=== PATIENT | female | born 1950 | race Caucasian/White ===

== ENCOUNTER 2020-08-31 08:36 | Inpatient (IN) | payer MEDICARE, OTHER ==
[2020-08-31] VITALS (41 sets, daily range): BP systolic 78–183; BP diastolic 31–141
[~2020-08-31] VITALS: Ht 167.6 cm; Wt 107.0 kg
--- NOTE | ~2020-08-31 | CON ---
[address] [address] CONSULTATION Name: CARA DUARTE Room: [address] IN ..#: [id number] Admission: 08/31/20 Attend Phys: Vaibhav Reaves MD Discharge: Date of : 50 Report #: [id number] THIS REPORT FOR: cc: MANINDER - Family physician unknown FAM - Family physician unknown ~ Steve Durand MD DATE OF SERVICE: 09/01/2020 REQUESTING PHYSICIAN: Vaibhav Reaves MD REASON FOR CONSULTATION: Acute kidney injury. HISTORY OF PRESENT ILLNESS: The patient is a 70-year-old female admitted to the hospital with chief complaints of shortness of breath. She was admitted yesterday on 08/31/2020. She was diagnosed with COVID infection five days ago, not getting any better. She now in Intensive Care Unit and had to be intubated. The patient apparently refused convalescent plasma and remdesivir as per notes from Dr. Reaves. The patient has been now thinks that she was not in right state of her mind and she wants to talk to Dr. Reaves possibly reverse that decision. PAST MEDICAL HISTORY: Significant for obesity and GERD. SOCIAL HISTORY: No current tobacco or alcohol abuse. FAMILY HISTORY: Noncontributory. REVIEW OF SYSTEMS: She was short of breath prior to admission, now she is intubated and sedated. PHYSICAL EXAMINATION: GENERAL: In ICU, intubated and sedated. VITAL SIGNS: Blood pressure is 120/51 and heart rate 63. She is afebrile. HEENT: Pupils are round. She is intubated and sedated. NECK: Fatty. LUNGS: With some crackles at the bases bilaterally. CARDIOVASCULAR: Regular rate. ABDOMEN: Obese, soft. LOWER EXTREMITIES: No edema. LABORATORY DATA: Revealed serum sodium of 131, potassium 4.3, chloride 101, carbon dioxide 22, BUN 29 and creatinine 1.9. ASSESSMENT: [place] [address] CONSULTATION Name: CARA DUARTE Room: [address] IN [facility].#: [id number] Admission: 08/31/20 Attend Phys: Vaibhav Reaves MD Discharge: Date of : 50 Report #: [id number] 1. Acute kidney injury likely due to COVID infection. 2. COVID-19 infection. 3. Respiratory failure due to COVID-19 infection. 4. Obesity. PLAN: IV fluids were stopped, I agree with that as she was fluid overloaded. Lasix was given. She had some urine output this morning. She will be started on tube feeding. Follow labs closely. She might require dialysis. By: [id number] Tony Durand MD /nt
[2020-08-31 09:22] LABS: ABSOLUTE LYMPHOCYTES 0.6 thou/uL (0.8-5.3); ABSOLUTE MONOCYTES 0.5 thou/uL (0.0-1.2); ABSOLUTE NEUTROPHILS 6.2 thou/uL (1.6-8.1); BASOPHILS 0.3 %; HEMATOCRIT 39.6 % (37.0-47.0); LYMPHOCYTES 7.6 %; MCHC 32.8 g/dL (28.0-37.0); MCV 94.5 fL (80.0-100.0); MONOCYTES 7.3 %; MPV 7.8 fl. (7.2-11.1); NUCLEATED RBCS 0 /100WBC; PLATELET COUNT* 232 thou/uL (150-400); POLYS 84.8 %; RDW-CV 14.3 % (10.5-14.5); WBC 7.3 thou/uL (4.0-11.0)
[2020-08-31 09:32] LABS: CALCIUM 8.2 mg/dL (8.5-10.1); CREATININE 1.1 mg/dL (0.6-1.3); POTASSIUM 4.1 mmol/L (3.5-5.1)
[2020-08-31 09:43] LABS: ALBUMIN 2.8 g/dL (3.4-5.0); TOTAL BILIRUBIN 0.4 mg/dL (<0.1-1.0); TOTAL PROTEIN 8.2 g/dL (6.4-8.2)
--- NOTE | 2020-08-31 09:44 | NUR ---
DAUGHTER ANTHONY CORTES [phone]. ANG [phone].
[2020-08-31] MEDS ORDERED: NORCO5 PO (10:12)
[2020-08-31] MEDS ORDERED: MOBIC15 MG PO (10:12)
[2020-08-31] MEDS ORDERED: AMITRIPTYLINE100 MG PO (10:13)
[2020-08-31] MEDS ORDERED: PRILOSEC OTC20 MG PO (10:13)
[2020-08-31] MEDS ORDERED: MUCINEX1200 MG PO (10:13)
[2020-08-31] MEDS ORDERED: CELEXA 20 MG TA20 MG PO (10:14)
[2020-08-31] MEDS ORDERED: PEPCID40 MG PO (10:14)
[2020-08-31] MEDS ORDERED: DULCOLAX STOOL100 M1 PO (10:14)
--- NOTE | 2020-08-31 10:43 | NUR ---
RIGHT BASILIC VESSEL ACCESSED FOR 5 BRAZILIAN DUAL LUMEN PICC. LINE PRE-TRIMMED TO 38 CM AMD ADVANCED TO THE 20CM SUDHEER BUT RESISTNACE MET. REINSERTION STTEMPTED 3 TIMES WITH SAME RESULTS. LINE REMOVED AND PRESSURE HELD FOR 5 MINUTES, PRESSURE DRESSING APPLIED. RIGHT CEPHALIC VESSEL ATEMPTED FOR ACCESS. LINE ADVANCED TO THE 20 CM SUDHEER BUT RESISTANCE MET. PICC LINE REMOVED, PRESSURE HELD WITH GAUZE FOR 5 MINUTES AND PRESSURE DRESSING APPLIED. DR LENTZ NOTIFIED. REPORT GIVEN TO AZRA OETRO.
[2020-08-31 10:46] LABS: APTT 27.8 Seconds (25.0-31.3); PROTIME 10.5 Seconds (9.20-11.50)
--- NOTE | 2020-08-31 11:05 | NUR ---
er admit to 233 telephone report given prior to arrival patient to via cart admission and history to do
--- NOTE | 2020-08-31 11:45 | NUR ---
patient very anxious and pulling at tubes and bipap doesnt want to keep bipap on rt called to rm
--- NOTE | 2020-08-31 11:55 | NUR ---
patient declining o2 sats in 70s order to transfer to icu and intubate
[2020-08-31 12:04] LABS: BE -8.8 mmol/L (-2 to +3); PCO2 49.1 mmHg (35.0-45.0); PO2 72.9 mmHg (75.0-100.0)
[2020-08-31 12:09] LABS: pH 7.211 (7.340-7.450)
--- NOTE | 2020-08-31 12:09 | NUR ---
PRAFUL NOTIFIED THAT PT WENT TO ROOM 233 BUT HEARD SHE WILL BE MOVED TO ICU AFTER INTUBATION.
--- NOTE | 2020-08-31 12:15 | NUR ---
rt and anestheioogist dr weber to to intubate personal belongigns bagged patient prepared to move to the [facility]
--- NOTE | 2020-08-31 12:55 | NUR ---
patient moved to icu via bed personal belongigns sent daughter notified of move to icu bedside report given to icu nurse
--- NOTE | 2020-08-31 13:55 | NUR ---
LEFT BASILIC VESSEL ACCESSED FOR 5 PORTUGUESE DUAL LUMEN PICC. LINE PE-TRIMMED TO 47CM AND ADVANCED TO THE ZERO SUDHEER WITH NO RESISTANCE MET. UPPER ARM CIRCUMFERENCE ABOVE INSERTION SITE= 15". SHERLOCK MAGNET AND 3CG CONFIRMATION OF TIP TERMINATION AT THE CAVOATRIAL JUNCTION APPRECIATED. GUIDEWIRE REMOVED, LINE FLUSHED AND INSERTINO SITE DRESSED. REPORT GIVEN TO BOLIVAR OTERO.
[2020-08-31 14:56] LABS: CALCIUM 7.7 mg/dL (8.5-10.1); POTASSIUM 4.8 mmol/L (3.5-5.1)
--- NOTE | 2020-08-31 15:10 | EKG ---
[place] [address] ELECTROCARDIOGRAM REPORT Name: CARA DUARTE Room: [address] ADM IN .R.#: [id number] Admission: 08/31/20 Attend Phys: Vaibhav Reaves, Discharge: Date of : 50 Date of Service: 08/31/20 0847 Report #: [id number] THIS REPORT FOR: //name// [facility] ED Test Date: 2020-08-31 Test Time: 08:47:51 Pat Name: CARA DUARTE Department: Room: [facility] Gender: F Temp Recruiter: MOHAN : 1950 Requested By: Jung Cuellar Order Number: [id number] MD: Cole Gilliam Measurements Intervals [place] Rate: 110 P: 60 WA: 161 QRS: -30 QRSD: 105 T: 35 QT: 345 QTc: 467 Interpretive Statements Sinus tachycardia Abnormal R-wave progression, early transition Inferior infarct, old No previous ECG available for comparison Electronically Signed On 08-31-2020 15:10:21 CDT by Cole Gilliam [email or web address] <ELECTRONICALLY SIGNED> By: Cole Gilliam MD, [facility] 08/31/20 1510 0847 0847 Cole Gilliam MD, [facility] /EPI
[2020-08-31 15:15] LABS: PCO2 42.3 mmHg (35.0-45.0); pH 7.314 (7.340-7.450)
--- NOTE | 2020-08-31 15:46 | 2DMMODE ---
[place] [address] 2 D/M-MODE ECHOCARDIOGRAM Name: CARA DUARTE Room: [address] IN [place].#: [id number] Admission: 08/31/20 Attend Phys: Vaibhav Reaves, Discharge: Date of : 50 Date of Service: 08/31/20 1546 Report #: [id number] THIS REPORT FOR: cc: FAM - Family physician unknown FAM - Family physician unknown Cole Gilliam MD [facility] ~ APPROVED REPORT Study performed: 08/31/2020 14:09:05 EXAM: Comprehensive 2D, Doppler, and color-flow Echocardiogram Patient Location: In-Patient Room #: 003 Status: routine BSA: 2.09 HR: 90 bpm BP: 111/85 mmHg Rhythm: NSR Other Information Study Quality: Good Indications Dyspnea 2D Dimensions IVSd: 10.79 (7-11mm) LVOT Diam: 19.86 (18-24mm) LVDd: 45.88 mm PWd: 9.79 (7-11mm) Ascending Ao: 31.89 (22-36mm) LVDs: 31.13 (25-40mm) Aortic Root: 31.97 mm Volumes Left Atrial Volume (Systole) LA ESV Index: 26.90 mL/m2 Aortic Valve AoV Peak Jamie.: 2.31 m/s AO Peak Gr.: 21.29 mmHg LVOT Max P.28 mmHg AO Mean Gr.: 13.06 mmHg LVOT Mean P.97 mmHg LVOT Max V: 1.15 m/s AO V2 VTI: 40.56 cm LVOT Mean V: 0.81 m/s NOA (VTI): 1.60 cm2 LVOT V1 VTI: 20.92 cm AI [place]: 1.62 m/s2 [place] [address] 2 D/M-MODE ECHOCARDIOGRAM Name: CARA DUARTE Room: [address] IN ..#: [id number] Admission: 08/31/20 Attend Phys: Vaibhav Reaves, Discharge: Date of : 50 Date of Service: 08/31/20 1546 Report #: [id number] AI PHT: 546.42 ms Mitral Valve E/A Ratio: 0.68 MV Decel. Time: 362.59 ms MV E Max Jamie.: 0.83 m/s MV PHT: 105.15 ms MVA (PHT): 2.09 cm2 TDI E/Lateral E': 10.38 E/Medial E': 11.86 Medial E' Jamie.: 0.07 m/s Lateral E' Jamie.: 0.08 m/s Pulmonary Valve PV Peak Jamie.: 1.02 m/s PV Peak Gr.: 4.19 mmHg Tricuspid Valve RAP Estimate: 5.00 mmHg TR Peak Gr.: 28.40 mmHg RVSP: 33.00 mmHg PA Pressure: 33.00 mmHg Left Ventricle The left ventricle is normal size. There is normal LV segmental wall motion. There is normal left ventricular wall thickness. Left ventricular systolic function is normal. The left ventricular ejection fraction is within the normal range. LVEF is 55-60%. Grade I - abnormal relaxation pattern. Right Ventricle The right ventricle is normal size. The right ventricular systolic function is normal. Atria Left atrium is mildly dilated. The right atrium size is normal. Aortic Valve Aortic valve is calcified. Mild aortic regurgitation. Mild aortic stenosis. Mitral Valve The mitral valve is normal in structure. Mild mitral regurgitation. No evidence of mitral valve stenosis. [place] [address] 2 D/M-MODE ECHOCARDIOGRAM Name: CARA DUARTE Room: [address]#: [id number] Admission: 08/31/20 Attend Phys: Vaibhav Reaves, Discharge: Date of : 50 Date of Service: 08/31/20 1546 Report #: [id number] The tricuspid valve is normal in structure. Mild tricuspid regurgitation. estimated pa pressure 40 mm Hg Pulmonic Valve The pulmonary valve is normal in structure. Trace pulmonic regurgitation. Great Vessels The aortic root is normal in size. IVC is normal in size and collapses >50% with inspiration. Pericardium There is no pericardial effusion. <Conclusion> LVEF is 55-60%. Left atrium is mildly dilated. Mild aortic stenosis. Mild aortic regurgitation. Mild mitral regurgitation. Mild tricuspid regurgitation. estimated pa pressure 40 mm Hg <ELECTRONICALLY SIGNED> By: Cole Gilliam MD, FACC 08/31/20 1546 1546 1546 Cole Gilliam MD, FACC /INF
--- NOTE | 2020-08-31 18:35 | NUR ---
PT RECEIVED FROM [facility] AT 1250 ON A VENTILATOR, FIO2 100%. PEEP INCREASED TO [address] AGUILAR, SATS MAINTAINING AT HIGH 80s. SEDATION STARTED WITH PROPOFOL AND FENTANYL GTT, TITRATED TO KEEP RASS -2. PICC INSERTED BY CHRIS AT THE BEDSIDE. OGT AND ORELLANA'S CATH INSERTED. ETT AND OGT PLACEMENT CONFIRMED BY CXR. ART LINE INSERTED BY DR POLO TO RT RADIAL ART. Q2 TURNS AND ORAL CARE GIVEN. DAUGHTER UPDATED OVER THE PHONE.
[2020-09-01] VITALS (60 sets, daily range): BP systolic 94–201; BP diastolic 42–99
--- NOTE | 2020-09-01 04:06 | NUR ---
ASSUMED CARE AT 1900H, ON VENT AT 100% AND SEDATED WITH PROPOFOL DRIP AND FENTANYL DRIP. PT MOVED HER LIPS WHEN ORAL CARE DONE AND HAVE SOME COUGH REFLEX WHEN SUCTIONED. BP WAS SOFT, STARTED VERSED AND PROPOFOL TITRATED DOWN TILL STOPED. UPDATE GIVEN TO AND REQUESTED FOR THE DOCTORS TO CALL HIM 9AM-10AM TODAY FOR UPDATES AND REGARDING THE REFUSED TX BY THE PT. 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 CONTINUE MONITORING AND TOWARDS GOALS. FENTANYL AT 100MICS/HR AND VERSED AT 6MG/HR.
[2020-09-01 04:16] LABS: ABSOLUTE LYMPHOCYTES 0.5 thou/uL (0.8-5.3); ABSOLUTE MONOCYTES 0.5 thou/uL (0.0-1.2); BASOPHILS 0.2 %; HEMATOCRIT 31.5 % (37.0-47.0); LYMPHOCYTES 7.3 %; MCH 30.3 pg (26.0-34.0); MCHC 32.5 g/dL (28.0-37.0); MCV 93.1 fL (80.0-100.0); MPV 7.6 fl. (7.2-11.1); NUCLEATED RBCS 0 /100WBC; PLATELET COUNT* 196 thou/uL (150-400); POLYS 85.5 %; RBC 3.38 mil/uL (4.20-5.00); RDW-CV 13.8 % (10.5-14.5)
[2020-09-01 04:30] LABS: HEMOGLOBIN 10.3 gm/dL (12.0-15.0)
[2020-09-01 04:33] LABS: CREATININE 1.9 mg/dL (0.6-1.3); MAGNESIUM 2.2 mg/dL (1.8-2.4); POTASSIUM 4.3 mmol/L (3.5-5.1); TOTAL BILIRUBIN 0.2 mg/dL (<0.1-1.0); TOTAL PROTEIN 6.3 g/dL (6.4-8.2)
[2020-09-01 05:16] LABS: BE -8.2 mmol/L (-2 to +3); PCO2 45.4 mmHg (35.0-45.0); PO2 65.9 mmHg (75.0-100.0)
[2020-09-01 05:18] LABS: pH 7.242 (7.340-7.450)
[2020-09-01 09:46] LABS: URINE BILIRUBIN NEGATIVE (Negative); URINE BLOOD 3+ (Negative); URINE CLARITY SL CLOUDY; URINE COLOR YELLOW; URINE GLUCOSE-RANDOM NEGATIVE (Negative); URINE KETONES NEGATIVE (Negative); URINE LEUKOCYTES-REFLEX NEGATIVE (Negative); URINE NITRITE-REFLEX NEGATIVE (Negative); URINE PROTEIN NEGATIVE (Negative); URINE UROBILINOGEN 0.2 E.U./dl (0.2-1.0)
[2020-09-01 09:49] LABS: URINE POTASSIUM-RANDOM 39.4 mmol/L
[2020-09-01 10:06] LABS: COARSE GRANULAR CASTS 4-10 Moderate /LPF (None Seen); FINE GRANULAR CASTS 0-3 Few /LPF (None Seen)
[2020-09-01 10:07] LABS: HYALINE CASTS 0-3 Few /LPF (None Seen); MUCUS 0-3 Light strn/LPF (None Seen); SQUAMOUS 4-10 Moderate /LPF (0-3); URINE RBC >20 Many /HPF (0-2)
[2020-09-01 10:08] LABS: URINE WBC-REFLEX 6-15 Few /HPF (0-5)
[2020-09-01 10:09] LABS: AMORPHOUS URATES Few /LPF (None Seen); BACTERIA-REFLEX 1-9 Few /HPF (None Seen)
[2020-09-01 17:59] LABS: BE -7.6 mmol/L (-2 to +3); PCO2 43.9 mmHg (35.0-45.0)
[2020-09-01 18:02] LABS: pH 7.258 (7.340-7.450)
[2020-09-01 20:02] LABS: SMEAR FOR EOSINOPHILS No Eosinophils Seen
[2020-09-02] VITALS (51 sets, daily range): BP systolic 97–163; BP diastolic 44–71
[2020-09-02 05:07] LABS: HEMATOCRIT 29.6 % (37.0-47.0); HEMOGLOBIN 9.9 gm/dL (12.0-15.0); MCH 31.1 pg (26.0-34.0); MCHC 33.6 g/dL (28.0-37.0); MCV 92.5 fL (80.0-100.0); MPV 7.7 fl. (7.2-11.1); NUCLEATED RBCS 0 /100WBC; PLATELET COUNT* 235 thou/uL (150-400); RDW-CV 13.9 % (10.5-14.5); WBC 10.4 thou/uL (4.0-11.0)
[2020-09-02 05:14] LABS: PREALBUMIN 10.8 mg/dL (18.0-35.7)
[2020-09-02 05:21] LABS: ALBUMIN 2.4 g/dL (3.4-5.0); ALKALINE PHOSPHATASE 102 U/L (46-116); ANION GAP 13 mmol/L (7-16); BUN 40 mg/dL (7-18); CALCIUM 7.2 mg/dL (8.5-10.1); CHLORIDE 99 mmol/L (98-107); CHOLESTEROL 101 mg/dL (<200); CO2 21 mmol/L (21-32); CREATININE 2.5 mg/dL (0.6-1.3); GLUCOSE 141 mg/dL (70-99); HDL CHOLESTEROL 49 mg/dL (>40); LDL CHOLESTEROL 43 mg/dL (<100); SGOT 62 U/L (15-37); SGPT 33 U/L (30-65); SODIUM 133 mmol/L (136-145); TC:HDL 2.1 Ratio (Not establshd); TOTAL BILIRUBIN 0.4 mg/dL (<0.1-1.0); TOTAL PROTEIN 6.3 g/dL (6.4-8.2); TRIGLYCERIDE 48 mg/dL (<150); TROPONIN-I LEVEL 0.39 ng/mL (<0.06); VLDL 10 mg/dL (<40)
[2020-09-02 05:25] LABS: SERUM ASSESSMENT CLEAR
--- NOTE | 2020-09-02 06:14 | NUR ---
REPORTED O2 SAT 80% SINCE PT CHANGED TO SUPINE POSITION. DR AGUILAR GAVE ORDERS TO INCREASE PEEP AND GIVE LASIX AND ALBUMIN.
[2020-09-02 06:48] LABS: ABSOLUTE LYMPHOCYTES 0.8 thou/uL (0.8-5.3); ABSOLUTE MONOCYTES 0.3 thou/uL (0.0-1.2); ABSOLUTE NEUTROPHILS 9.3 thou/uL (1.6-8.1); MYELOCYTES 1 %; PLATELET ESTIMATE ADEQUATE
[2020-09-02 06:49] LABS: ANISOCYTOSIS 1+; POIKILOCYTOSIS 1+
--- NOTE | 2020-09-02 11:18 | CON ---
[address] [address] CONSULTATION Name: CARA DUARTE Room: [address] IN M.R.#: [id number] Admission: 08/31/20 Attend Phys: Vaibhav Reaves MD Discharge: Date of : 50 Report #: [id number] THIS REPORT FOR: cc: FAM - Family physician unknown FAM - Family physician unknown ~ Cole Gilliam MD [facility] DATE OF SERVICE: 09/01/2020 CARDIOLOGY CONSULTATION HISTORY OF PRESENT ILLNESS: The patient is a 70-year-old white female who I was asked to see in the hospital today after she was noted to have a borderline troponin. The history is obtained from the chart. The patient is currently intubated and sedated. There are no family members available. She was brought to the Emergency Room yesterday morning by family members. The patient apparently was diagnosed with COVID a week ago and has been at home. She has been coughing and short of breath. Yesterday, her shortness of breath became more severe. She was brought to the hospital by ambulance. She apparently was initially admitted to a monitored bed. However, yesterday she became more short of breath and had to be intubated and was transferred to the ICU. I was asked to see her for cardiac evaluation. According to the chart, there has been no previous history of heart disease. She does have a history of depression. MEDICATIONS: On admission consist of hydrocodone, Mobic, Elavil, omeprazole, Celexa, Pepcid. SOCIAL HISTORY: There is no history of smoking. REVIEW OF SYSTEMS: No history of stroke, liver disease, kidney disease, cancer, psychiatric illness, chronic skin condition. PHYSICAL EXAMINATION: GENERAL: Revealed a large, elderly female lying in bed. She is on a ventilator. VITAL SIGNS: She has a blood pressure of 100/60, pulse 60. She is afebrile. HEENT: She was anicteric, conjunctivae pink. Mucous membranes appear moist. CHEST: Clear to auscultation. CARDIOVASCULAR: Regular rate and rhythm without murmur. ABDOMEN: Obese. EXTREMITIES: Had no pitting edema. SKIN: Cool and dry. NEUROLOGIC: She is unresponsive to painful stimuli. RADIOLOGICAL DATA: Her ECG showed a sinus rhythm with no significant [place] [address] CONSULTATION Name: CARA DUARTE Room: [address] IN [facility]#: [id number] Admission: 08/31/20 Attend Phys: Vaibhav Reaves MD Discharge: Date of : 50 Report #: [id number] T-wave changes. Her workup so far, she had an echocardiogram performed yesterday that showed an ejection fraction of 60%, left atrial enlargement, mild aortic regurgitation. There is evidence of mild aortic stenosis with a peak gradient across the aortic valve of 20 mmHg. Her chest x-ray on admission, the patient had bilateral infiltrates suggesting pneumonitis, cardiomegaly. LABORATORY WORK: Sodium 131, BUN 29, creatinine is 1.9, albumin is 2.0. Troponin 1.06. BNP 799. White blood cell count 7.0, hemoglobin 10.3. Her COVID antigen stat test was positive. IMPRESSION AND RECOMMENDATIONS: 1. Type 2 myocardial infarction. No history of angina. No ECG changes. Suspect secondary to oxygen supply demand mismatch secondary to pneumonia. I would recommend an aspirin a day. Because of her low blood pressure, I would not recommend a beta-ellyn nor GUZMAN inhibitor. 2. Acute kidney injury. 3. Elevated blood sugars. Suspect diabetes. 4. Obesity. 5. Protein malnutrition. <ELECTRONICALLY SIGNED> By: Cole Gilliam MD, FACC 09/02/20 1118 0757 [id number] Gilliam MD, FACC /nt
[2020-09-02 11:19] LABS: BE -15.8 mmol/L (-2 to +3); PO2 71.4 mmHg (75.0-100.0)
[2020-09-02 11:20] LABS: pH 6.949 (7.340-7.450)
[2020-09-02 11:21] LABS: PCO2 79.1 mmHg (35.0-45.0)
[2020-09-02 13:49] LABS: CALCIUM 6.5 mg/dL (8.5-10.1); CREATININE 2.6 mg/dL (0.6-1.3); POTASSIUM 4.4 mmol/L (3.5-5.1)
[2020-09-02 14:25] LABS: BE -12.3 mmol/L (-2 to +3)
[2020-09-02 14:26] LABS: PCO2 68.1 mmHg (35.0-45.0); pH 7.051 (7.340-7.450)
[2020-09-02 14:27] LABS: PO2 55.4 mmHg (75.0-100.0)
--- NOTE | 2020-09-02 19:07 | NUR ---
PT HAS SEVERAL EPISODES OF DESAT THIS SHIFT. DR GAGNON CAME IN AND PLACED A CENTRAL LINE. NOW ABLE TO MONITOR CVP AND HAVE ENOUGH SITES FOR NUMEROUS DRIPS. RT AND THIS RN HAD TO BAG PT TO REGAIN SATURATION ABOVE 85. PERFUSION IS POOR, NO GOOD SITES TO MONITOR O2 SATS. PROPOFOL STOPPED AND NIMBEX STARTED. PT DOES NOT TOLERATE TURNS VERY WELL. PT ON FAR LEFT AND IS TOLERATING AT THIS TIME. BP ON LEGS ONLY. Q2H TURNS. ASSESSMENT CHARTED.
[2020-09-03] VITALS (117 sets, daily range): BP systolic 105–168; BP diastolic 48–80
[2020-09-03 04:06] LABS: GLYCOHEMOGLOBIN (HGB A1C) 5.9 % (4.8-5.6)
[2020-09-03 05:54] LABS: HEMATOCRIT 34.7 % (37.0-47.0); MCH 30.2 pg (26.0-34.0); MCHC 31.7 g/dL (28.0-37.0); MCV 95.3 fL (80.0-100.0); MPV 7.2 fl. (7.2-11.1); RBC 3.64 mil/uL (4.20-5.00); RDW-CV 14.7 % (10.5-14.5); WBC 14.6 thou/uL (4.0-11.0)
[2020-09-03 06:04] LABS: ALBUMIN 2.6 g/dL (3.4-5.0); CALCIUM 6.8 mg/dL (8.5-10.1); CREATININE 2.9 mg/dL (0.6-1.3); MAGNESIUM 2.4 mg/dL (1.8-2.4); POTASSIUM 5.1 mmol/L (3.5-5.1); TOTAL BILIRUBIN 0.4 mg/dL (<0.1-1.0); TOTAL PROTEIN 6.9 g/dL (6.4-8.2)
[2020-09-03 08:36] LABS: BE -15.6 mmol/L (-2 to +3)
[2020-09-03 08:38] LABS: pH 6.979 (7.340-7.450)
[2020-09-03 08:39] LABS: PO2 56.8 mmHg (75.0-100.0)
[2020-09-03 12:02] LABS: BE -9.8 mmol/L (-2 to +3)
[2020-09-03 12:04] LABS: PCO2 88.5 mmHg (35.0-45.0); PO2 52.8 mmHg (75.0-100.0)
--- NOTE | 2020-09-03 15:37 | NUR ---
ICU ROUNDS: PER NURSING PT.REMAINS ON THE VENTILATOR. 18 PEEP AND 100% FI02 WITH SATS 75-80%. ATTEMPTED PRONING ON THURSDAY BUT PT.DID NOT TOLERATE. IS DNR STATUS.
--- NOTE | 2020-09-03 16:34 | NUR ---
Pt has had a consistent desaturation for this entire shift. Pt has remained in the 70's-80 % with vent changes, medication changes, and position changes. Pt had been on left side for shift nurse manager, as too unstable to turn, however, pt was turned and put in chair pose with slight recovery. This RN and RT have been in communication with Dr. Gustafson and we are no longer using Ambu-bag to raise sats above 85 as communicated yesterday. has been notified of 's condition, and he does not want to consider palliative extubation at this time. Pt is now back on the far left side and is still sitting at 79%. Urine output is dark and tea colored. Noticed a small clot in varela line. This Rn flushed varela and is monitoring further output. Nephrology notified. Will continue to monitor.
--- NOTE | 2020-09-03 21:34 | NUR ---
SPOKE WITH DR CASTILLO AND RECIEVED ORDERS TO START BICARB DRIP AND STOP IV NIMBEX.
[2020-09-03 21:37] LABS: BE -2.2 mmol/L (-2 to +3)
[2020-09-03 21:39] LABS: PCO2 79.1 mmHg (35.0-45.0); pH 7.163 (7.340-7.450)
[2020-09-03 21:40] LABS: PO2 36.4 mmHg (75.0-100.0)
[2020-09-04] VITALS (55 sets, daily range): BP systolic 76–175; BP diastolic 41–77
[2020-09-04 04:41] LABS: ABSOLUTE LYMPHOCYTES 0.2 thou/uL (0.8-5.3); ABSOLUTE MONOCYTES 0.9 thou/uL (0.0-1.2); ABSOLUTE NEUTROPHILS 6.7 thou/uL (1.6-8.1); HEMATOCRIT 27.7 % (37.0-47.0); HEMOGLOBIN 9.2 gm/dL (12.0-15.0); MCH 30.8 pg (26.0-34.0); MCHC 33.1 g/dL (28.0-37.0); MCV 93.1 fL (80.0-100.0); MONOCYTES 11.2 %; MPV 7.3 fl. (7.2-11.1); NUCLEATED RBCS 0 /100WBC; PLATELET COUNT* 246 thou/uL (150-400); POLYS 85.8 %; RBC 2.98 mil/uL (4.20-5.00); RDW-CV 14.6 % (10.5-14.5); WBC 7.8 thou/uL (4.0-11.0)
--- NOTE | 2020-09-04 04:44 | NUR ---
PRN VECRONIUM GIVEN AT 0440. MED WILL NOT SCAN.
[2020-09-04 05:01] LABS: ALBUMIN 2.3 g/dL (3.4-5.0); CREATININE 3.1 mg/dL (0.6-1.3); MAGNESIUM 2.3 mg/dL (1.8-2.4); POTASSIUM 3.6 mmol/L (3.5-5.1); TOTAL BILIRUBIN 0.4 mg/dL (<0.1-1.0); TOTAL PROTEIN 5.6 g/dL (6.4-8.2)
[2020-09-04 05:05] LABS: CALCIUM 5.9 mg/dL (8.5-10.1)
--- NOTE | 2020-09-04 13:48 | NUR ---
palliative extubation at 1330. time of 1346. witnessed with Suki hernadez. Dr Dobson notified.
== END 2020-09-04 13:46 | DRG 870 ==
LOC: M.ERS 08:36 → M.ICU 09:50 → M.TBA-ER 09:50 → M.2W 10:56 → M.ICU 12:43
PROVIDERS: Family Medicine; Internal Medicine; Internal Medicine Cardiovascular Disease; Internal Medicine Pulmonary Disease; Pediatrics; ADMIT Internal Medicine; ATTEND Internal Medicine
PROC: B548ZZA Ultrasonography of Superior Vena Cava, Guidance (ICD-10-PCS; principal; 2020-08-31)
PROC: 0BH17EZ Insertion of Endotracheal Airway into Trachea, Via Natural or Artificial Opening (ICD-10-PCS; principal; 2020-08-31)
PROC: 02HV33Z Insertion of Infusion Device into Superior Vena Cava, Percutaneous Approach (ICD-10-PCS; principal; 2020-08-31)
PROC: 5A09357 Assistance with Respiratory Ventilation, Less than 24 Consecutive Hours, Continuous Positive Airway Pressure (ICD-10-PCS; 2020-08-31)
PROC: 5A1955Z Respiratory Ventilation, Greater than 96 Consecutive Hours (ICD-10-PCS; 2020-08-31)
DX: A41.89 Other specified sepsis (principal); U07.1 COVID-19; J80 Acute respiratory distress syndrome; J12.82 Pneumonia due to coronavirus disease 2019; N17.0 Acute kidney failure with tubular necrosis; I21.A1 Myocardial infarction type 2; E44.0 Moderate protein-calorie malnutrition; R65.20 Severe sepsis without septic shock; E66.9 Obesity, unspecified; R73.9 Hyperglycemia, unspecified; G89.29 Other chronic pain; F32.9 Major depressive disorder, single episode, unspecified; I35.0 Nonrheumatic aortic (valve) stenosis; I27.20 Pulmonary hypertension, unspecified; I95.9 Hypotension, unspecified; F41.9 Anxiety disorder, unspecified; Z66 Do not resuscitate; Z51.5 Encounter for palliative care; Z68.38 Body mass index [BMI] 38.0-38.9, adult; Z79.899 Other long term (current) drug therapy